=== PATIENT | female | born 1940 | race Caucasian/White ===

== ENCOUNTER 2017-01-06 19:39 | Emergency (ER) | payer MEDICARE, MEDICAID ==
[2017-01-06 20:59] VITALS: BP 153/54
--- OUTSIDE RECORDS SUMMARY | 2017-01-06 22:02 | XMS REPORT | Continuity of Care Document ---
:1940 Author Organization [facility] ([facility]) Address [address] [place] [address] Phone [phone] Care Team Providers Name Role Phone Unavailable Primary Care Provider Unavailable Source Comments This disclosure is being made pursuant to the Care Everywhere program, applicable federal and state laws, and may not contain all informaitonavailable regarding this patient.[facility] ([facility]) Active Allergies and Adverse Reactions No Active Allergies Current Medications Not on file Active Problems Problem Noted Date Hematuria 12/04/2006 Overview: problem school director replacement for go-live --MAL Social History Tobacco Use Types Packs/Day Years Used Date Never Assessed Last Filed Vital Signs Vital Sign Reading Time Taken Blood Pressure 145/71 12/04/2006 1:10 PM REIMBURSEMENT REP Pulse 100 12/04/2006 1:10 PM REIMBURSEMENT REP Temperature 36.8 C (98.24 F) 12/04/2006 1:10 PM REIMBURSEMENT REP Respiratory Rate - - Height - - Weight - - Body Mass Index - - Oxygen Saturation - - Plan of Care Health Maintenance Due Date Last Done Comments Hepatitis B Vaccine (1 of 3 - Primary Series) 1940 Tdap Vaccine 1953 Lipid Disorder Screening 1960 Td Vaccine 1960 Mammogram 1982 Colonoscopy 08/10/1992 Zoster Vaccine 2002 Osteoporosis Screening (DXA Bone Density) 2007 Pneumococcal Vaccine (1 of 2 - PCV13) 2007 HCC Annual Coding Diabetes without Complication 10/06/2015 Influenza Vaccine: Seasonal (#1) 05/06/2016 Results from Last 3 Months Not on file
== END 2017-01-06 21:56 | disposition left against medical advice (07) ==
LOC: ER 19:39
DX: Z53.21 Procedure and treatment not carried out due to patient leaving prior to being seen by health care provider (principal)